=== PATIENT | female | born 2000 | race Caucasian/White ===

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

== ENCOUNTER 2023-04-13 07:40 | Emergency (ER) | payer MEDICAID ==
[~2023-04-13] VITALS: Ht 167.6 cm; Wt 65.9 kg
[2023-04-13 08:25] VITALS: BP 123/79; TEMP 98.1
[2023-04-13 08:33] VITALS: PULSE 90; RESP 20; O2SAT 100
[2023-04-13] MEDS ORDERED: ALBU108A5 IN (08:43)
[2023-04-13] MEDS ORDERED: LORA-1126 PO (08:43)
== END 2023-04-13 08:59 | disposition home or self-care (01) ==
LOC: ER 07:40 → EDBD 07:40 → ER 08:59
DX: J45.901 Unspecified asthma with (acute) exacerbation (principal); R07.89 Other chest pain
CPT/HCPCS: 71046